=== PATIENT | male | born 1985 | race Caucasian/White ===

== ENCOUNTER 2018-05-05 21:52 | Emergency (ER) | payer OTHER ==
[2018-05-05] MEDS: LORAZEPAM 1 MG TAB PO (23:40)
== END 2018-05-05 23:55 | disposition home or self-care (01) ==
LOC: FTE 23:55
DX: F41.9 Anxiety disorder, unspecified (principal); F17.210 Nicotine dependence, cigarettes, uncomplicated
CPT/HCPCS: 99283; Z7502